=== PATIENT | female | born 1945 | race Caucasian/White ===

== ENCOUNTER 2018-05-11 19:18 | Emergency (ER) | payer MEDICARE, SELFPAY ==
[2018-05-11 20:05] VITALS: BP 163/79; PULSE 81; RESP 16; TEMP 36.8; O2SAT 100; BMI 29.2
--- NOTE | 2018-05-11 22:59 | ED.WOUNDLAC ---
HPI - Wound/Laceration General Chief Complaint: Wound/Laceration Stated Complaint: SPOT ON LEFT LEG Time Seen by Provider: 05/11/18 22:12 Source: patient Mode of arrival: ambulatory Limitations: no limitations History of Present Illness HPI narrative: 73-year-old female with history of hypothyroidism presents with her in the evaluation spontaneously draining quarter-sized abscess on her left anterior thigh. 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 She denies any systemic symptoms such as fever, chills nor nausea or vomiting. Her lesion is painful in spontaneously draining but she denies any significant change with ambulation of Onset (ago): day(s) Extremity Location: Left: thigh 1. Associated symptoms: pain Related Data Home Medications Medication Instructions Recorded Confirmed levothyroxine 05/11/18 Previous Rx's Medication Instructions Recorded doxycycline hyclate 100 mg PO BID #20 tab 05/11/18 Allergies Allergy/AdvReac Type Severity Reaction Status Date / Time No Known Drug Allergies Allergy Verified 05/11/18 20:12 Review of Systems Review of Systems All systems reviewed & are unremarkable except as noted in HPI and below Constitutional Denies chills, Denies fever(s), Denies lethargy and Denies weakness Eyes Denies change in vision, Denies eye discharge, Denies irritation and Denies loss of vision ENT Ears, Nose, Mouth, and Throat: Denies change in voice, Denies neck pain and Denies sore throat Cardiovascular Denies chest pain, Denies irregular heart rhythm, Denies lightheadedness, Denies palpitations, Denies dyspnea, Denies dyspnea on exertion and Denies orthopnea Respiratory Denies cough, Denies dyspnea, Denies dyspnea on exertion and Denies wheezing Gastrointestinal Gastrointestinal: Denies abdominal pain, Denies change in bowel habits, Denies diarrhea, Denies nausea and Denies vomiting Genitourinary Denies hematuria, Denies flank pain, Denies urinary incontinence and Denies urinary urgency Musculoskeletal Denies neck pain Integumentary/Breasts Denies pruritus, Reports erythema, Denies rash, Reports skin pain, Reports skin swelling, Reports sores and Reports wounds Neurologic Denies confusion, Denies loss of vision and Denies weakness Psychiatric Denies anxiety, Denies confusion, Denies depression, Denies homicidal ideation and Denies suicidal ideation Endocrine Denies palpitations Hematologic/Lymphatic Denies easy bruising Allergic/Immunologic Denies wheezing [facility] Medical History Hypothyroid (Acute) Social History Smoking Status: Never smoker Exam Narrative Exam Narrative: GEN: AOx3 and in mild distress EYES: Pupils are equal, round, and reactive to light and accommodation. Extraoccular muscles are intact bilaterally. There is no subconjunctival hemorrhage or exudate. CHEST: Lungs are clear to auscultation bilaterally and free of wheezes, rales, or rhonchi. Heart rate is regular rhythm, there are no murmurs, clicks, rubs, or gallops. There is no chest wall tenderness. ABD: Abdomen is soft and nontender. There is no guarding or rebound. Bowel sounds are normal in all 4 quadrants. There is no mass or organomegaly. EXT: Full painless ROM of all extremities with no loss of sensation or strength. SKIN: Spontaneously draining 2 cm abscess on left anterior. Minimal surrounding erythema and no lymphangitis Initial Vital Signs Initial Vital Signs: Vital Signs Temperature 98.2 F 05/11/18 20:05 Pulse Rate 81 05/11/18 20:05 Respiratory Rate 16 05/11/18 20:05 Blood Pressure 163/79 H 05/11/18 20:05 Pulse Oximetry 100 05/11/18 20:05 Procedures Abscess I/D Site: lower extremity Side (if applicable): left Local Anesthetic: lidocaine 1% and with bicarb Amount of anesthesia used (mL): 4 Technique: incised with #11 blade Amount of fluid expressed (mL): 1 Irrigation: No Packing used?: none Course Orders Ordered: Discontinued Medications Doxycycline Hyclate (Vibramycin) 100 mg PO NOW ONE Stop: 05/11/18 23:44 Last Admin: 05/11/18 23:52 Dose: 100 mg Vital Signs - 8 hr 05/12/18 00:22 Pulse Rate 71 Respiratory Rate 18 Blood Pressure 140/70 H Pulse Oximetry 96 Discharge Plan Departure Patient Disposition: Home Clinical Impression: Abscess Discharge Date/Time: 05/12/18 00:15 Interventions: ED Discharge Assessment Last Done: 05/12/18 00:22 Instructions: DI for Skin Abscess Activity Restrictions/Additional Instructions: *You have been diagnosed with [ left thigh cutaneous abscess ] *What to do: *Take medications as directed *Follow up with your primary care provider in 2-3 days, call for an appointment. Let them know you were seen in the Emergency Department and that we ask that you be seen in follow up *Return to ER if you should have any new, worsening or concerning symptoms, such as [ increasing pain, drainage, fever, vomiting, other bothersome symptoms] Prescriptions: New doxycycline hyclate 100 mg tablet 100 mg PO BID Qty: 20 RF: 0 No Action levothyroxine 25 mcg tablet RF: 0 Referrals: Kyle Alanis MD [Physician] -
[2018-05-11] MEDS: DOXYCYCLINE HYCLATE 100 MG TABLET PO (23:52)
[2018-05-12 00:22] VITALS: BP 140/70; PULSE 71; RESP 18; O2SAT 96
== END 2018-05-12 00:15 | disposition home or self-care (01) ==
PROVIDERS: Emergency Provider Emergency Medicine
DX: L02.416 Cutaneous abscess of left lower limb (principal)
CPT/HCPCS: 10060; 99283

== ENCOUNTER → 2018-06-06 12:42 | Outpatient (CLI) | payer MEDICARE, SELFPAY | PROVIDERS: Visit Provider Internal Medicine | DX: M85.831 Other specified disorders of bone density and structure, right forearm (principal); Z78.0 Asymptomatic menopausal state | CPT/HCPCS: 77080; 77081 ==

== ENCOUNTER → 2018-06-25 07:49 | Outpatient (CLI) | payer MEDICARE, SELFPAY ==
--- NOTE | 2018-06-25 | DI.MG.S_ITS ---
BILATERAL DIGITAL SCREENING MAMMOGRAM 3D/2D WITH CAD: 06/25/2018 CLINICAL: Routine screening. Comparison is made to exams dated: 08/18/2015 mammogram, 11/22/2013 mammogram, and 02/24/2010 mammogram - [facility]. There are scattered fibroglandular elements in both breasts. Current study was also evaluated with a Computer Aided Detection (CAD) system. No significant masses, calcifications, or other findings are seen in either breast. There has been no significant interval change. IMPRESSION: NEGATIVE There is no mammographic evidence of malignancy. A 1 year screening mammogram is recommended.(06/26/2019) This exam was interpreted at Station ID: [id number]. NOTE: For mammograms, a report in lay terms will be sent to the patient. Approximately 15% of breast malignancies will not be visualized mammographically. In the management of a palpable breast mass, a negative mammogram must not discourage biopsy of a clinically suspicious lesion. Electronically Signed By: Praneeth lawler/pat:06/27/2018 11:26:40 letter sent: Normal Exam ACR BI-RADS Category 1: Negative [id number]
[2018-06-25 09:09] LABS: Add Manual Diff / Slide Review NO; Basophils Percent Auto 1.1 % (0-2); Eosinophils Percent Auto 3.5 % (2-4); Hematocrit 41.6 % (36-46); Hemoglobin 13.8 g/dL (12.0-16.0); Lymphocytes Percent Auto 23.6 % (25-40); Mean Corpuscular HGB Conc 33.3 % (30-36); Mean Corpuscular Hemoglobin 31.1 PG (26-34); Mean Corpuscular Volume 93.5 fL (80-100); Monocytes Percent Auto 11.4 % (3-14); Neutrophils Absolute Auto 3500 /uL (3000-5900); Neutrophils Percent Auto 60.4 % (50-75); Platelet Count 325 X10^3/uL (150-400); Red Blood Cell Count 4.45 X10^6/uL (4.0-5.2); Red Cell Distribution Width 14.4 % (11.6-14.8); White Blood Cell Count 5.7 X10^3/uL (4.5-11.0)
[2018-06-25 09:40] LABS: Alanine Aminotransferase 25 IU/L (9-52); Albumin 4.4 g/dL (3.5-5.0); Albumin Globulin Ratio 1.5 (1.0-2.8); Alkaline Phosphatase 67 U/L (38-126); Aspartate Aminotransferase 24 IU/L (14-36); Bilirubin Total 0.6 mg/dL (0.2-1.3); Blood Urea Nitrogen 15 mg/dL (7-17); Calcium 9.3 mg/dL (8.4-10.2); Carbon Dioxide 29 mmol/L (22-32); Chloride 104 mmol/L (98-107); Cholesterol 226 mg/dL (140-199); Estimated Glomerular Filt Rate > 60.0 mL/min (>60); Glucose 102 mg/dL (80-110); HDL Cholesterol 85 mg/dL (40-60); HEMOLYSIS < 15 (0-50); LDL Cholesterol Calculated 117 mg/dL (<100); Potassium 4.1 mmol/L (3.4-5.1); Sodium 144 mmol/L (137-145); Total Protein 7.4 g/dL (6.3-8.2); Triglycerides 118 mg/dL (35-150)
[2018-06-25 10:32] LABS: Free T3, Triiodothyronine Free 3.35 pg/mL (2.77-5.27)
== END ==
PROVIDERS: PCP Internal Medicine; Visit Provider Internal Medicine
DX: Z00.00 Encounter for general adult medical examination without abnormal findings (principal); Z12.31 Encounter for screening mammogram for malignant neoplasm of breast; E03.9 Hypothyroidism, unspecified; R06.00 Dyspnea, unspecified; R03.0 Elevated blood-pressure reading, without diagnosis of hypertension
CPT/HCPCS: 36415; 77063; 77067; 80053; 80061; 84443; 84481; 85025

== ENCOUNTER → 2019-06-25 15:32 | Outpatient (ROUT) | payer MEDICARE, SELFPAY | PROVIDERS: PCP Internal Medicine; Visit Provider Student in an Organized Health Care Education/Training Program | DX: L02.211 Cutaneous abscess of abdominal wall (principal) | CPT/HCPCS: 87070; 87075; 87077; 87147; 87186; 87205 ==

== ENCOUNTER → 2019-07-05 08:20 | Outpatient (CLI) | payer MEDICARE, SELFPAY ==
[2019-07-05 10:06] LABS: TSH w/ Reflex to FT4 3.71 uIU/mL (0.47-4.68)
[2019-07-05 15:13] LABS: Free T4, Direct Thyroxine 0.89 ng/dL (0.78-2.19)
== END ==
PROVIDERS: PCP Internal Medicine; Visit Provider Internal Medicine
DX: E03.9 Hypothyroidism, unspecified (principal)
CPT/HCPCS: 36415; 84439; 84443

== ENCOUNTER → 2019-11-08 16:49 | Outpatient (ROUT) | payer MEDICARE, SELFPAY | PROVIDERS: PCP Internal Medicine; Visit Provider Internal Medicine | DX: R39.9 Unspecified symptoms and signs involving the genitourinary system (principal) | CPT/HCPCS: 87086 ==

== ENCOUNTER → 2020-05-21 19:25 | Outpatient (ROUT) | payer MEDICARE, SELFPAY ==
[2020-05-21 19:34] LABS: Add Manual Diff / Slide Review NO; Basophils Absolute Auto 100 /uL (0-100); Basophils Percent Auto 0.8 % (0-2); Eosinophils Absolute Auto 100 /uL (0-450); Eosinophils Percent Auto 0.9 % (2-4); Hematocrit 42.2 % (36-46); Hemoglobin 13.8 g/dL (12.0-16.0); Lymphocytes Absolute Auto 1100 /uL (1100-4500); Lymphocytes Percent Auto 16.5 % (25-40); Mean Corpuscular HGB Conc 32.7 % (30-36); Mean Corpuscular Hemoglobin 30.6 PG (26-34); Mean Corpuscular Volume 93.5 fL (80-100); Monocytes Absolute Auto 500 /uL (0-900); Monocytes Percent Auto 8.5 % (3-14); Neutrophils Absolute Auto 4700 /uL (1500-7000); Neutrophils Percent Auto 73.3 % (50-75); Platelet Count 276 X10^3/uL (150-400); Red Blood Cell Count 4.52 X10^6/uL (4.0-5.2); Red Cell Distribution Width 15.1 % (11.6-14.8); White Blood Cell Count 6.4 X10^3/uL (4.5-11.0)
[2020-05-21 19:49] LABS: Alanine Aminotransferase 20 IU/L (<35); Albumin 4.2 g/dL (3.5-5.0); Albumin Globulin Ratio 1.5 (1.0-2.8); Alkaline Phosphatase 63 U/L (38-126); Aspartate Aminotransferase 26 IU/L (14-36); BUN Creatinine Ratio 23.2 (6-22); Bilirubin Total 0.5 mg/dL (0.2-1.3); Blood Urea Nitrogen 13 mg/dL (7-17); Calcium 9.4 mg/dL (8.4-10.2); Carbon Dioxide 29 mmol/L (22-32); Chloride 103 mmol/L (98-107); Estimated Glomerular Filt Rate > 60.0 mL/min (>60); Globulin 2.8 g/dL (1.7-4.1); Glucose 112 mg/dL (80-110); HEMOLYSIS < 15 (0-50); Potassium 4.3 mmol/L (3.4-5.1); Sodium 138 mmol/L (137-145)
[2020-05-21 20:05] LABS: Vitamin D 25 Hydroxy (D3) 44.3 ng/mL (30.0-100.0)
[2020-05-21 20:18] LABS: TSH w/ Reflex to FT4 6.09 uIU/mL (0.47-4.68)
== END ==
PROVIDERS: PCP Internal Medicine; Visit Provider Physician Assistant
DX: E03.9 Hypothyroidism, unspecified (principal); R06.00 Dyspnea, unspecified; R00.2 Palpitations; I10 Essential (primary) hypertension; E78.5 Hyperlipidemia, unspecified; E55.9 Vitamin D deficiency, unspecified
CPT/HCPCS: 80053; 82306; 83735; 84439; 84443; 84481; 85025

== ENCOUNTER → 2020-06-05 15:13 | Outpatient (CLI) | payer MEDICARE, SELFPAY ==
[2020-06-07 15:11] LABS: COVID19 Sendout Not Detected (Not Detect)
== END ==
PROVIDERS: PCP Internal Medicine; Visit Provider Physician Assistant
DX: Z11.59 Encounter for screening for other viral diseases (principal)
CPT/HCPCS: 87635

== ENCOUNTER → 2020-06-08 15:10 | Outpatient (CLI) | payer MEDICARE, SELFPAY ==
--- NOTE | 2020-06-08 | DI.NM.S_ITS ---
PROCEDURE: NM EXERCISE TREADMILL NON NUC COMPARISON: None. INDICATIONS: Dyspnea, unspecified FINDINGS: Patient exercised for 5 minutes and reached 7 METs. Target heart rate reached (106% of max predicted heart rate reached). Appropriate BP response to exercise. No ST-T changes and no ecopy noted during the study. IMPRESSION: Low risk, normal treadmill ECG only stress test. 1) No ECG evidence of ischemia. 2) No angina during the study. Dyspnea before the start of study, which may be related to anxiety. 3) Mildly reduced exercise tolerance (7.0 METs, CRICKET +11%). Target heart rate achieved. Appropriate BP response to exercise. 4) No prior stress test available for comparison. Dictated by: La Lang MD on 06/08/2020 at 16:34 Approved by: La Lang MD on 06/08/2020 at 16:38
== END ==
PROVIDERS: PCP Internal Medicine; Referring Provider Internal Medicine; Visit Provider Physician Assistant
DX: R06.00 Dyspnea, unspecified (principal)
CPT/HCPCS: 93017

== ENCOUNTER → 2023-07-06 16:41 | Outpatient (CLI) | payer OTHER, SELFPAY ==
--- NOTE | 2023-07-06 | DI.MRI.S_ITS ---
PROCEDURE: MR BRAIN (IAC) WWO CON INDICATIONS: RECURRENT VERTIGO/HEARING LOSS TECHNIQUE: Noncontrast sagittal T1 spin echo, axial FLAIR, axial gradient echo, axial diffusion and ADC through the brain. Axial thin-slice 3D CISS, coronal TruFISP, axial T1 spin echo with fat saturation through the internal auditory canals. After the administration of contrast, thin slice axial and coronal T1 spin echo with fat saturation through the internal auditory canals, and axial and coronal and sagittal T1 spin echo with fat saturation through the brain. COMPARISON: None. FINDINGS: Image quality: Excellent. Cerebellopontine angles: No cerebellopontine angle masses. Inner ear structures appear normally formed. No suspicious enhancement in the internal auditory canal or along the course of the 7th cranial nerve. CSF spaces: Ventricles are normal in size and shape. No extra-axial fluid collections. Basal cisterns are patent. Brain: No intracranial bleeds or mass effects. Velazquez-white matter interface is intact. No abnormal intracranial enhancement. Mild age-related global volume loss and chronic microvascular ischemic changes. Diffusion weighted images demonstrate no acute ischemic insults. Brainstem appears normal. Normal intravascular flow voids are present. Vertebrobasilar dolichoectasia. Skull and face: Calvarial marrow signal is normal. Orbits appear normal. Sinuses: Sinuses and mastoids are clear. IMPRESSION: 1. No cause for patient's symptoms is identified. 2. The internal auditory canals are normal in appearance without mass or abnormal enhancement. 3. Mild age-related global volume loss and chronic microvascular ischemic changes. Dictated by: Deepak Grayson M.D. on 07/07/2023 at 9:10 Approved by: Deepak Grayson M.D. on 07/07/2023 at 9:21
== END ==
PROVIDERS: PCP Internal Medicine; Referring Provider Otolaryngology; Visit Provider Otolaryngology
DX: R42 Dizziness and giddiness (principal); H90.3 Sensorineural hearing loss, bilateral
CPT/HCPCS: 70553; A9579

== ENCOUNTER 2024-10-17 06:01 | Emergency (ER) | payer MEDICARE, SELFPAY ==
--- NOTE | 2024-10-17 06:06 | ED.ABDPAIN ---
HPI - Abdominal Pain <DO Karli Box Last Filed: 10/20/24 07:08> General Chief Complaint: Abdominal Pain Stated Complaint: v/d/n abd pain Time Seen by Provider: 10/17/24 06:05 Source: patient, RN notes reviewed and old records reviewed Mode of arrival: Family Vehicle Limitations: no limitations History of Present Illness HPI narrative: 79-year-old female history of hypertension, hypothyroidism, dyslipidemia, ulcerative colitis treated with colectomy had a colostomy with reversal and J-pouch in the . Patient states she was in [place] for 10 days week ago Monday had about 24 hours of nausea vomiting and diarrhea that resolved patient has been fine since and last night developed similar symptoms with nausea vomiting and diarrhea and lower abdominal cramping. Patient states no fevers. No chest pain or shortness of breath. She states pain in his lower abdomen but sort of both sides. No back pain. Denies dysuria urgency or frequency. States stool has been diarrhea but no black or bloody changes. Patient states she was not having any symptoms in between these 2 episodes. No other known sick contacts. No one else in her family are traveling with her was ill. Patient states she was on levothyroxine, amlodipine, citalopram and pravastatin. States she had prior J-pouch, colostomy with reversal after colectomy for ulcerative colitis in the and bilateral knee surgery. No tobacco, patient does have alcohol weekly, no recreational drugs. Patient defers anything for pain but states she feels nauseated still. Related Data Home Medications Medication Instructions Recorded Confirmed levothyroxine 25 mcg tablet 05/11/18 Previous Rx's Medication Instructions Recorded doxycycline hyclate 100 mg tablet 100 mg PO BID #20 tabs 05/11/18 ondansetron 4 mg disintegrating 4 mg PO Q8H PRN nausea and 10/17/24 tablet vomiting #10 tabs Allergies Allergy/AdvReac Type Severity Reaction Status Date / Time No Known Drug Allergies Allergy Verified 05/11/18 20:12 Review of Systems <DO Karli Box Last Filed: 10/20/24 07:08> Review of Systems ROS Unobtainable: All systems reviewed & are unremarkable except as noted in HPI and below Patient History <DO Karli Box Last Filed: 10/20/24 07:08> Medical History (Updated 10/17/24 @ 06:26 by Kinjal Adams DO) Hypothyroid Social History Smoking Status: Never smoker Smoking Status: Never smoker alcohol intake frequency: a few times a week Exam <Kinjal Adams DO - Last Filed: 10/20/24 07:08> Narrative Exam Narrative: GENERAL: Alert and oriented x three, female in mild distress HEENT: Head normocephalic, atraumatic, EOMI, pupils reactive, face symmetric, dry mucous membranes NECK: Supple, full range of motion CARDIOVASCULAR: Regular rate and rhythm without murmurs, rubs or gallops. RESPIRATORY: Breath sounds equal bilaterally, no wheezes rales or rhonchi. ABDOMEN: Soft, nontender. Non-distended. Normoactive bowel sounds all 4 quadrants. No guarding or rebound, rigidity, no mass : No CVA tenderness EXTREMITIES: Normal range of motion, no clubbing or edema. Neurovascularly intact NEUROLOGICAL: Cranial nerves II through XII grossly intact. Moving all extremities SKIN: Warm, dry, no petechiae, no rashes or lesions. Initial Vital Signs Initial Vital Signs: Vital Signs Pulse Rate 83 10/17/24 06:09 Respiratory Rate 18 10/17/24 06:09 Blood Pressure 172/81 H 10/17/24 06:09 Pulse Oximetry 97 10/17/24 06:09 Oxygen Delivery Method Room Air 10/17/24 06:09 <Letitia Gonsalez DO - Last Filed: 10/17/24 17:38> Initial Vital Signs Initial Vital Signs: Vital Signs Pulse Rate 83 10/17/24 06:09 Respiratory Rate 18 10/17/24 06:09 Blood Pressure 172/81 H 10/17/24 06:09 Pulse Oximetry 97 10/17/24 06:09 Oxygen Delivery Method Room Air 10/17/24 06:09 Course <Kinjal Adams DO - Last Filed: 10/20/24 07:08> Orders Ordered: Discontinued Medications Sodium Chloride (Normal Saline 0.9%) 1,000 mls @ 1,000 mls/hr IV BOLUS ONE Stop: 10/17/24 07:18 Last Infusion: 10/17/24 07:14 Dose: Infused Documented By: Admin: 10/17/24 06:25 Dose: 1,000 mls/hr Documented By: GIBSON Ondansetron HCl (Ondansetron 4 Mg/2 Ml Inj) 4 mg IV NOW ONE Stop: 10/17/24 06:20 Last Admin: 10/17/24 06:25 Dose: 4 mg Documented By: GIBSON Vital Signs Vital signs: Vital Signs - 8 hr 10/17/24 09:57 Temperature 98.2 F Pulse Rate 70 Respiratory Rate 16 Blood Pressure 125/59 L Pulse Oximetry 97 Oxygen Delivery Method Room Air <Letitia Gonsalez DO - Last Filed: 10/17/24 17:38> Orders Ordered: Discontinued Medications Sodium Chloride (Normal Saline 0.9%) 1,000 mls @ 1,000 mls/hr IV BOLUS ONE Stop: 10/17/24 07:18 Last Infusion: 10/17/24 07:14 Dose: Infused Documented By: Admin: 10/17/24 06:25 Dose: 1,000 mls/hr Documented By: GIBSON Ondansetron HCl (Ondansetron 4 Mg/2 Ml Inj) 4 mg IV NOW ONE Stop: 10/17/24 06:20 Last Admin: 10/17/24 06:25 Dose: 4 mg Documented By: GIBSON Vital Signs Vital signs: Vital Signs - 8 hr 10/17/24 09:57 Temperature 98.2 F Pulse Rate 70 Respiratory Rate 16 Blood Pressure 125/59 L Pulse Oximetry 97 Oxygen Delivery Method Room Air MDM - Abdominal Pain <Kinjal Adams DO - Last Filed: 10/20/24 07:08> Lab Data 10/17/24 06:30 10/17/24 06:30 Labs: Lab Results 10/17/24 10/17/24 Range/Units 06:30 07:35 WBC 7.6 (4.5-11.0) X10^3/uL RBC 4.82 (4.0-5.2) X10^6/uL Hgb 14.8 (12.0-16.0) g/dL Hct 44.7 (36-46) % MCV 92.6 (80-100) fL MCH 30.6 (26-34) PG MCHC 33.1 (30-36) % RDW 15.7 H (11.6-14.8) % Plt Count 296 (150-400) X10^3/uL Neut % (Auto) 89.0 H (50-75) % Lymph % (Auto) 7.2 L (25-40) % [place] % (Auto) 2.7 L (3-14) % Eos % (Auto) 0.2 L (2-4) % Baso % (Auto) 0.9 (0-2) % Neut # (Auto) 6700 (0613-9494) /uL Lymph # (Auto) 500 L (5746-5211) /uL [place] # (Auto) 200 (0-900) /uL Eos # (Auto) 0 (0-450) /uL Baso # (Auto) 100 (0-100) /uL Sodium 141 (137-145) mmol/L Potassium 3.9 (3.4-5.1) mmol/L Chloride 104 (98-107) mmol/L Carbon Dioxide 28 (22-32) mmol/L BUN 13 (7-17) mg/dL Creatinine 0.50 L (0.52-1.04) mg/dL Estimated GFR > 60 (>60) mL/min BUN/Creatinine Ratio 26.0 H (6-22) Glucose 152 H (80-110) mg/dL Calcium 9.6 (8.4-10.2) mg/dL Total Bilirubin 0.5 (0.2-1.3) mg/dL AST 33 (14-36) IU/L ALT 24 (<35) IU/L Alkaline Phosphatase 75 (38-126) U/L Total Protein 8.1 (6.3-8.2) g/dL Albumin 4.8 (3.5-5.0) g/dL Globulin 3.3 (1.7-4.1) g/dL Albumin/Globulin Ratio 1.5 (1.0-2.8) Lipase 69 (23-300) U/L Stl C. cayetanensis PCR Not detected (Not Detect) Stool Rotavirus (PCR) Not detected (Not Detect) Stool Adenovirus (PCR) Not detected (Not Detect) Stool Astrovirus (PCR) Not detected (Not Detect) Stool Cryptosporidium PCR Not detected (Not Detect) Stl E.coli Shiga Tox PCR Not detected (Not Detect) St Sh/Enteroin Ecoli PCR Not detected (Not Detect) Stl Enterotoxigenic E PCR Not detected (Not Detect) Stool EPEC (PCR) Not detected (Not Detect) Stl E. histolytica PCR Not detected (Not Detect) Stool Giardia Lamblia PCR Not detected (Not Detect) Stool Sapovirus (PCR) Not detected (Not Detect) Stl P. shigelloides PCR Not detected (Not Detect) St Y.enterocolitica PCR Not detected (Not Detect) Stool Vibrio (PCR) Not detected (Not Detect) Stl Vibrio cholerae PCR Not detected (Not Detect) Stl Enteroaggr Ecoli PCR Not detected (Not Detect) Stl Norovirus GI/GII PCR Not detected (Not Detect) Campylobacter (PCR) Not detected (Not Detect) C. difficile Tox (PCR) Not detected (Not Detect) Salmonella (PCR) Not detected (Not Detect) MDM Narrative Medical decision making narrative: 79-year-old female presents with complaint of nausea vomiting and diarrhea swallows abdominal cramping she had traveled to [place] returned fairly recently but noted that she had similar symptoms over a week ago for 12 or 24 hours then had resolution. Labs, urine and CT abdomen pelvis were ordered as patient has somewhat atypical presentation does have potential for infection with recent travel to [place] but also had history of ulcerative colitis with significant abdominal surgeries so imaging felt appropriate particularly in somebody 79 years old with recurrent symptoms. Patient received fluids and Zofran. She defers anything for pain. Patient signed out to Dr. Gonsalez while awaiting workup. [id number] Dr[address] Gonsalez-patient is seen evaluated myself. Abdomen is soft nontender she has no nausea she had [address] is concerning for developing bowel obstruction. GI panel is negative she is tolerating oral fluids. At this time patient is tolerating fluids she has no abdominal pain bili is reexamined she has had bowel movements. There is questionable developing small-bowel obstruction on CT however her symptoms do not quite correlate. Long discussion with the patient about bowel obstruction and signs and symptoms. However without any nausea vomiting or abdominal pain and having bowel movements I think that maybe it was not a bowel obstruction at this time. Strict return precautions. She was wanting some nausea medication at home however strongly advised that if nausea medication is not working she must return to the ED. <Letitia Gonsalez, DO - Last Filed: 10/17/24 17:38> Lab Data Labs: Lab Results 10/17/24 10/17/24 Range/Units 06:30 07:35 WBC 7.6 (4.5-11.0) X10^3/uL RBC 4.82 (4.0-5.2) X10^6/uL Hgb 14.8 (12.0-16.0) g/dL Hct 44.7 (36-46) % MCV 92.6 (80-100) fL MCH 30.6 (26-34) PG MCHC 33.1 (30-36) % RDW 15.7 H (11.6-14.8) % Plt Count 296 (150-400) X10^3/uL Neut % (Auto) 89.0 H (50-75) % Lymph % (Auto) 7.2 L (25-40) % [place] % (Auto) 2.7 L (3-14) % Eos % (Auto) 0.2 L (2-4) % Baso % (Auto) 0.9 (0-2) % Neut # (Auto) 6700 (7441-9849) /uL Lymph # (Auto) 500 L (9485-5239) /uL [place] # (Auto) 200 (0-900) /uL Eos # (Auto) 0 (0-450) /uL Baso # (Auto) 100 (0-100) /uL Sodium 141 (137-145) mmol/L Potassium 3.9 (3.4-5.1) mmol/L Chloride 104 (98-107) mmol/L Carbon Dioxide 28 (22-32) mmol/L BUN 13 (7-17) mg/dL Creatinine 0.50 L (0.52-1.04) mg/dL Estimated GFR > 60 (>60) mL/min BUN/Creatinine Ratio 26.0 H (6-22) Glucose 152 H (80-110) mg/dL Calcium 9.6 (8.4-10.2) mg/dL Total Bilirubin 0.5 (0.2-1.3) mg/dL AST 33 (14-36) IU/L ALT 24 (<35) IU/L Alkaline Phosphatase 75 (38-126) U/L Total Protein 8.1 (6.3-8.2) g/dL Albumin 4.8 (3.5-5.0) g/dL Globulin 3.3 (1.7-4.1) g/dL Albumin/Globulin Ratio 1.5 (1.0-2.8) Lipase 69 (23-300) U/L Stl C. cayetanensis PCR Not detected (Not Detect) Stool Rotavirus (PCR) Not detected (Not Detect) Stool Adenovirus (PCR) Not detected (Not Detect) Stool Astrovirus (PCR) Not detected (Not Detect) Stool Cryptosporidium PCR Not detected (Not Detect) Stl E.coli Shiga Tox PCR Not detected (Not Detect) St Sh/Enteroin Ecoli PCR Not detected (Not Detect) Stl Enterotoxigenic E PCR Not detected (Not Detect) Stool EPEC (PCR) Not detected (Not Detect) Stl E. histolytica PCR Not detected (Not Detect) Stool Giardia Lamblia PCR Not detected (Not Detect) Stool Sapovirus (PCR) Not detected (Not Detect) Stl P. shigelloides PCR Not detected (Not Detect) St Y.enterocolitica PCR Not detected (Not Detect) Stool Vibrio (PCR) Not detected (Not Detect) Stl Vibrio cholerae PCR Not detected (Not Detect) Stl Enteroaggr Ecoli PCR Not detected (Not Detect) Stl Norovirus GI/GII PCR Not detected (Not Detect) Campylobacter (PCR) Not detected (Not Detect) C. difficile Tox (PCR) Not detected (Not Detect) Salmonella (PCR) Not detected (Not Detect) Imaging Data CT scan - abdomen/pelvis: Radiologist's Impression: PROCEDURE: CT ABDOMEN PELVIS W CON INDICATIONS: n/v/d, low abd pain, hx J pouch, colostomy w/ reversal TECHNIQUE: After the administration of intravenous contrast, axial sections acquired from the lung bases to the pubic symphysis. Coronal and sagittal reformats were performed. For radiation dose reduction, the following was used: automated exposure control, adjustment of mA and/or kV according to patient size. COMPARISON: None. FINDINGS: Image quality: Diagnostic. Lower Chest: No significant findings. ABDOMEN: Liver: No solid mass. A few small cysts. Gallbladder: Probable small gallstone. No pericholecystic fluid. Biliary ducts: No biliary dilation. Pancreas: No ductal dilation. Spleen: Size is within normal limits. Adrenal Glands: No adrenal nodules. Kidneys and Ureters: No hydronephrosis. Small nonobstructing kidney stones bilaterally. No solid mass. No complex renal cystic lesion which requires follow up. Stomach and Bowel: Tiny hiatal hernia. Stomach is not significantly distended. Anal anastomosis. Colon is surgically absent. There are dilated loops of small bowel mostly in the right abdomen. There is mesenteric edema and fluid. There is small bowel fecalization in the anterior mid abdomen, with adjacent of possible small bowel narrowing, (12/10). There is possible mild thickening at this site. No loculated fluid collection demonstrated. Liquid stool contents and gas in the J-pouch. Peritoneum: No pneumoperitoneum. No significant ascites. Mesenteric edema as described above. Ventral Wall: Tiny fat containing umbilical hernia. Abdominal Nodes: No retroperitoneal or mesenteric adenopathy by size criteria. Vessels: Aorta and inferior vena cava are normal in size. Calcified atherosclerotic plaque. Mesenteric arteries appear patent. Portal vein is patent. PELVIS: Pelvic Organs: Anteverted uterus. Endometrium is estimated at 7 mm, (). Bladder: No bladder wall thickening. Pelvic Nodes: No enlarged lymph nodes. Miscellaneous: No inguinal hernias are seen. Varices anterior left thigh and groin. Bones: No aggressive osseous abnormality. Left L5 pars defect. Anterolisthesis of L5 on S1 measuring 0.5 cm. Severe DDD at L3-L4. IMPRESSION: 1. Dilated loops of small bowel in the right abdomen. Possible narrowing in the small bowel. Mesenteric edema. Suspect developing small bowel obstruction. Less likely small bowel stricture. 2. Post colectomy. 3. Small nonobstructing kidney stones. Possible gallstone. 4. Endometrium is estimated at 7 mm in this postmenopausal patient. This could be further evaluated with pelvic ultrasound. Comment: Findings were discussed with Dr. Letitia Gonsalez at time of dictation. Dictated by: Kevon Echevarria M.D. on 10/17/2024 at 7:51 MDM Narrative Medical decision making narrative: 79-year-old female presents with complaint of nausea vomiting and diarrhea swallows abdominal cramping she had traveled to [place] returned fairly recently but noted that she had similar symptoms over a week ago for 12 or 24 hours then had resolution. Labs, urine and CT abdomen pelvis were ordered as patient has somewhat atypical presentation does have potential for infection with recent travel to [place] but also had history of ulcerative colitis with significant abdominal surgeries so imaging felt appropriate particularly in somebody 79 years old with recurrent symptoms. Patient received fluids and Zofran. Patient signed out to Dr. Gonsalez while awaiting workup. [id number] Gonsalez-patient is seen evaluated myself. Abdomen is soft nontender she has no nausea she had [address] is concerning for developing bowel obstruction. GI panel is negative she is tolerating oral fluids. At this time patient is tolerating fluids she has no abdominal pain bili is reexamined she has had bowel movements. There is questionable developing small-bowel obstruction on CT however her symptoms do not quite correlate. Long discussion with the patient about bowel obstruction and signs and symptoms. However without any nausea vomiting or abdominal pain and having bowel movements I think that maybe it was not a bowel obstruction at this time. Strict return precautions. She was wanting some nausea medication at home however strongly advised that if nausea medication is not working she must return to the ED. Discharge Plan Departure Patient Disposition: Home Clinical Impression: Nausea vomiting and diarrhea Instructions: DI for Viral Gastroenteritis -- Adult Activity Restrictions/Additional Instructions: *You have been diagnosed with gastroenteritis *What to do: At this time please continue to increase fluids recommend Gatorade or Gatorade like product. Please monitor for worsening nausea and increased abdominal pain. Your CT did show possible developing bowel obstruction. If you develop these symptoms he must return to the ED for re-evaluation *Continue to take medications as directed Zofran 4 mg every 8 hours for nausea or vomiting *Follow up with your primary care provider in 2-3 days or call [phone] *Return to ER if you should have increasing abdominal pain nausea vomiting not passing gas or any new, worsening or concerning symptoms Prescriptions: New ondansetron 4 mg tablet,disintegrating 4 mg PO Q8H PRN (Reason: nausea and vomiting) Qty: 10 0RF No Action levothyroxine 25 mcg tablet doxycycline hyclate 100 mg tablet 100 mg PO BID Qty: 20 0RF Referrals: Kyle Alanis MD [Primary Care Provider] - Stand Alone Forms: Patient Portal/API/Survey
[2024-10-17 06:09] VITALS: BP 172/81; PULSE 83; RESP 18; O2SAT 97; BMI 32.1
[2024-10-17 06:13] VITALS: TEMP 37.3
--- NOTE | 2024-10-17 06:19 | DI.CT.S_ITS ---
PROCEDURE: CT ABDOMEN PELVIS W CON INDICATIONS: n/v/d, low abd pain, hx J pouch, colostomy w/ reversal TECHNIQUE: After the administration of intravenous contrast, axial sections acquired from the lung bases to the pubic symphysis. Coronal and sagittal reformats were performed. For radiation dose reduction, the following was used: automated exposure control, adjustment of mA and/or kV according to patient size. COMPARISON: None. FINDINGS: Image quality: Diagnostic. Lower Chest: No significant findings. ABDOMEN: Liver: No solid mass. A few small cysts. Gallbladder: Probable small gallstone. No pericholecystic fluid. Biliary ducts: No biliary dilation. Pancreas: No ductal dilation. Spleen: Size is within normal limits. Adrenal Glands: No adrenal nodules. Kidneys and Ureters: No hydronephrosis. Small nonobstructing kidney stones bilaterally. No solid mass. No complex renal cystic lesion which requires follow up. Stomach and Bowel: Tiny hiatal hernia. Stomach is not significantly distended. Anal anastomosis. Colon is surgically absent. There are dilated loops of small bowel mostly in the right abdomen. There is mesenteric edema and fluid. There is small bowel fecalization in the anterior mid abdomen, with adjacent of possible small bowel narrowing, (3/). There is possible mild thickening at this site. No loculated fluid collection demonstrated. Liquid stool contents and gas in the J-pouch. Peritoneum: No pneumoperitoneum. No significant ascites. Mesenteric edema as described above. Ventral Wall: Tiny fat containing umbilical hernia. Abdominal Nodes: No retroperitoneal or mesenteric adenopathy by size criteria. Vessels: Aorta and inferior vena cava are normal in size. Calcified atherosclerotic plaque. Mesenteric arteries appear patent. Portal vein is patent. PELVIS: Pelvic Organs: Anteverted uterus. Endometrium is estimated at 7 mm, (/). Bladder: No bladder wall thickening. Pelvic Nodes: No enlarged lymph nodes. Miscellaneous: No inguinal hernias are seen. Varices anterior left thigh and groin. Bones: No aggressive osseous abnormality. Left L5 pars defect. Anterolisthesis of L5 on S1 measuring 0.5 cm. Severe DDD at L3-L4. IMPRESSION: 1. Dilated loops of small bowel in the right abdomen. Possible narrowing in the small bowel. Mesenteric edema. Suspect developing small bowel obstruction. Less likely small bowel stricture. 2. Post colectomy. 3. Small nonobstructing kidney stones. Possible gallstone. 4. Endometrium is estimated at 7 mm in this postmenopausal patient. This could be further evaluated with pelvic ultrasound. Comment: Findings were discussed with Dr. Letitia Gonsalez at time of dictation. Dictated by: Kevon Echevarria M.D. on 10/17/2024 at 7:51 Approved by: Kevon Echevarria M.D. on 10/17/2024 at 8:13
[2024-10-17] MEDS: ONDANSETRON 4 MG/2 ML INJ IV (06:25)
[2024-10-17] MEDS: SODIUM CHLORIDE 0.9% 1,000 ML 1000 ML IV (06:25)
[2024-10-17 06:39] LABS: Add Manual Diff / Slide Review NO; Basophils Absolute Auto 100 /uL (0-100); Basophils Percent Auto 0.9 % (0-2); Eosinophils Absolute Auto 0 /uL (0-450); Eosinophils Percent Auto 0.2 % (2-4); Hematocrit 44.7 % (36-46); Hemoglobin 14.8 g/dL (12.0-16.0); Lymphocytes Absolute Auto 500 /uL (1100-4500); Lymphocytes Percent Auto 7.2 % (25-40); Mean Corpuscular HGB Conc 33.1 % (30-36); Mean Corpuscular Hemoglobin 30.6 PG (26-34); Mean Corpuscular Volume 92.6 fL (80-100); Monocytes Absolute Auto 200 /uL (0-900); Monocytes Percent Auto 2.7 % (3-14); Neutrophils Absolute Auto 6700 /uL (1500-7000); Platelet Count 296 X10^3/uL (150-400); Red Blood Cell Count 4.82 X10^6/uL (4.0-5.2); Red Cell Distribution Width 15.7 % (11.6-14.8); White Blood Cell Count 7.6 X10^3/uL (4.5-11.0)
[2024-10-17 06:56] LABS: Alanine Aminotransferase 24 IU/L (<35); Albumin 4.8 g/dL (3.5-5.0); Albumin Globulin Ratio 1.5 (1.0-2.8); Alkaline Phosphatase 75 U/L (38-126); Aspartate Aminotransferase 33 IU/L (14-36); Bilirubin Total 0.5 mg/dL (0.2-1.3); Blood Urea Nitrogen 13 mg/dL (7-17); Calcium 9.6 mg/dL (8.4-10.2); Carbon Dioxide 28 mmol/L (22-32); Chloride 104 mmol/L (98-107); Estimated Glomerular Filt Rate > 60 mL/min (>60); Globulin 3.3 g/dL (1.7-4.1); Glucose 152 mg/dL (80-110); HEMOLYSIS < 15 (0-50); Lipase 69 U/L (23-300); Potassium 3.9 mmol/L (3.4-5.1); Sodium 141 mmol/L (137-145); Total Protein 8.1 g/dL (6.3-8.2)
[2024-10-17 07:51] VITALS: BP 166/66; PULSE 84; RESP 18; O2SAT 91
[2024-10-17 09:02] LABS: Adenovirus F 40/41 Not Detected (Not Detect); Astrovirus Not Detected (Not Detect); Campylobacter Not Detected (Not Detect); Clostridium difficile toxin AB Not Detected (Not Detect); Cryptosporidium Not Detected (Not Detect); Cyclospora cayetanensis Not Detected (Not Detect); Entamoeba histolytica Not Detected (Not Detect); Enteroaggregative E.coli Not Detected (Not Detect); Enteropathogenic E.coli Not Detected (Not Detect); Enterotoxigenic E.coli It/st Not Detected (Not Detect); Giardia lamblia Not Detected (Not Detect); Norovirus GI/GII Not Detected (Not Detect); Plesiomonsa shigelloides Not Detected (Not Detect); Rotavirus A Not Detected (Not Detect); Salmonella Not Detected (Not Detect); Sapovirus Not Detected (Not Detect); Shiga-like toxin-prod E.coli Not Detected (Not Detect); Shigella/Enteroinvasive E.coli Not Detected (Not Detect); Vibrio Not Detected (Not Detect); Vibrio cholerae Not Detected (Not Detect); Yersinia enterocolitica Not Detected (Not Detect)
[2024-10-17 09:57] VITALS: BP 125/59; PULSE 70; RESP 16; TEMP 36.8; O2SAT 97
--- NOTE | 2024-10-17 09:58 | PC.NURSE ---
Tolerated tiffani joi.
== END 2024-10-17 10:13 | disposition home or self-care (01) ==
PROVIDERS: Emergency Medicine; Emergency Provider Emergency Medicine; PCP Internal Medicine
DX: A08.4 Viral intestinal infection, unspecified (principal); R19.7 Diarrhea, unspecified; R11.2 Nausea with vomiting, unspecified; I10 Essential (primary) hypertension; E03.9 Hypothyroidism, unspecified; E78.5 Hyperlipidemia, unspecified; R10.30 Lower abdominal pain, unspecified
CPT/HCPCS: 36415; 74177; 80053; 83690; 85025; 87507; 96361; 96374; 99284; J2405; Q9967

== ENCOUNTER → 2024-10-24 12:00 | Outpatient (CLI) | payer MEDICARE, SELFPAY ==
--- NOTE | 2024-10-24 12:05 | DI.RAD.S_ITS ---
PROCEDURE: XR SHOULDER RT MIN 2V INDICATIONS: ACUTE RIGHT SHOULDER PAIN TECHNIQUE: 4 views of the shoulder were acquired. COMPARISON: None. FINDINGS: Bones: No fractures or dislocations. No suspicious bony lesions. Visualized ribs appear intact. Severe acromioclavicular and glenohumeral degenerative narrowing. Subchondral sclerosis and periarticular osteophytes are present. No erosions. Soft tissues: No suspicious soft tissue calcifications. IMPRESSION: Arthritic changes at the shoulder as above. Dictated by: Pastora Browning M.D. on 10/24/2024 at 14:36 Approved by: Pastora Browning M.D. on 10/24/2024 at 14:37
== END ==
LOC: RAD 12:03
PROVIDERS: PCP Internal Medicine; Referring Provider Student in an Organized Health Care Education/Training Program; Visit Provider Student in an Organized Health Care Education/Training Program
DX: M25.511 Pain in right shoulder (principal)
CPT/HCPCS: 73030